=== PATIENT | male | born 1985 | race Caucasian/White ===

== ENCOUNTER 2023-06-15 09:54 | Emergency (ER) | payer OTHER, SELFPAY ==
--- NOTE | ~2023-06-15 | XR_ITS ---
EXAMINATION: XR abdomen/kub 1V INDICATION: Right-sided abdominal pain TECHNIQUE: Supine views of the abdomen were obtained on 2 radiographs. COMPARISON: None FINDINGS: A moderate volume of colonic stool is present. The bowel gas pattern is normal. No definite urolithiasis is identified. IMPRESSION: 1. Moderate volume of colonic stool. Reviewed, dictated and finalized at location A.
[2023-06-15 10:53] VITALS: BP 142/79; PULSE 72; RESP 18; TEMP 36.6; O2SAT 100
--- NOTE | 2023-06-15 11:33 | ED.ABDPAIN ---
HPI - Abdominal Pain General Chief Complaint: Abdominal Pain Stated Complaint: abdominal pain Time Seen by Provider: 06/15/23 11:35 Source: patient and RN notes reviewed Mode of arrival: ambulatory Limitations: no limitations History of Present Illness HPI narrative: 37 year old male presents with concern for abdominal pain. He reports last night around o'clock he began having pain that started in his right flank and radiated around to his right mid abdomen. He reports the pain is a 2/10. He reports it is worse when he is lying down. He denies any other exacerbating or relieving factors. He reports normal bowel movements, he had a bowel movement overnight. He reports he drank apple cider vinegar in cases symptoms are being caused by urinary tract infection which he feel made him vomit. He denies any other nausea or vomiting. He denies diarrhea. He reports feeling like he needs to urinate when he does not. He denies fever, aches, chills, sweats. Denies frequency, hematuria, dysuria. MD elicited complaint: abdominal pain Related Data Home Medications Medication Instructions Recorded Confirmed albuterol sulfate 90 mcg/actuation 2 puff inhalation Q6-8H PRN 06/15/23 06/15/23 aerosol inhaler Wheezing Allergies Allergy/AdvReac Type Severity Reaction Status Date / Time No Known Allergies Allergy Verified 06/15/23 11:27 Review of Systems Review of Systems: CONSTITUTIONAL: Denies malaise, chills, sweats, or fever. ENT: Denies rhinorrhea, congestion, sinus pain, otalgia or sore throat. CARDIOVASCULAR: Denies chest pain, palpitations, or edema. RESPIRATORY: Denies cough or dyspnea. GASTROINTESTINAL: Reports right mid abdominal pain, 1 episode of nausea, vomiting. Denies diarrhea, bloody, or mucous stools. Reports right flank pain GENITOURINARY: Denies dysuria or hematuria. Reports urgency MUSCULOSKELETAL: Denies myalgia. NEUROLOGIC: Denies headache. All systems reviewed & are unremarkable except as noted in HPI and below PMFSH Comments At time of signature, agree with nursing past medical, surgical, social and family history. There is no relevant family history pertinent to the presenting complaint Exam Narrative: GENERAL: Well-appearing, well-nourished, and in no acute distress. HEAD: Normocephalic, atraumatic. EYES: PERRLA, conjunctivae clear, and EOMI. ENT: Nares clear, turbinates pink, no rhinorrhea or epistaxis. Mucous membranes moist. Oropharynx without edema, erythema, or lesions. Tonsils not enlarged and without exudate. NECK: Supple. No lymphadenopathy CHEST: Speaks in full sentences. No respiratory distress. HEART: Regular rate and rhythm. ABDOMEN: Soft, obese, nondistended, nontender. No guarding, rebound tenderness, or rigidity. No pulsatile masses. Bowel sounds present in all four quadrants. No organomegaly. Negative Erickson?s sign. No periumbilical tenderness. No Supra public tenderness or distension. No hernia noted. No scars or surface trauma. SKIN: Warm, dry, no rash. NEURO: Alert and oriented x3. PSYCH: Normal mood and affect Course Course Emergency Course: Discussed x-ray findings with patient. Patient reports at this time his pain is gone. Patient would prefer to follow-up with his primary care doctor red go to the ER at this time. Patient understands reasons to go to the ER if his symptoms return, worsen. Patient is aware of, understands and agrees to treatment plan. Anticipatory guidance given. Patient agrees to follow-up as directed and is aware of reasons to seek care at the emergency department. Portions of this record may have been created with voice recognition software Level of Care: Express Care Visit Vital Signs Vital signs: Vital Signs Temperature 97.9 F 06/15/23 10:53 Pulse Rate 72 06/15/23 10:53 Respiratory Rate 18 06/15/23 10:53 Blood Pressure 142/79 H 06/15/23 10:53 Pulse Oximetry 100 06/15/23 10:53 Oxygen Delivery Room Air 06/15/23 10:53
== END 2023-06-15 12:37 | disposition home or self-care (01) ==
PROVIDERS: Emergency Provider Nurse Practitioner; PCP Family Medicine
DX: R10.9 Unspecified abdominal pain (principal); K59.00 Constipation, unspecified; J45.909 Unspecified asthma, uncomplicated
CPT/HCPCS: 74018; 81003; 99203; G0463

== ENCOUNTER 2024-10-07 14:55 | Emergency (ER) | payer OTHER, SELFPAY ==
[2024-10-07 15:19] VITALS: BP 137/76; PULSE 105; RESP 18; TEMP 37.8; O2SAT 99
--- NOTE | 2024-10-07 16:01 | ED_ITS ---
HPI - URI/Sore Throat General Chief Complaint: Upper Respiratory Infection Stated Complaint: Flu like symptoms Time Seen by Provider: 10/07/24 16:01 Source: patient, RN notes reviewed and old records reviewed Mode of arrival: ambulatory Limitations: no limitations History of Present Illness HPI Narrative: 39-year-old male presents to the [facility] with 2 day history of headaches, body aches, sinus congestion, chest congestion. Patient reports a history of asthma and albuterol is not helping the chest congestion Onset (ago): day(s) (2) Treatments prior to arrival: acetaminophen and other (Albuterol) Related Data Home Medications ?Medication ?Instructions ?Recorded ?Confirmed ?Last Taken ?Type albuterol sulfate 90 mcg/actuation 2 puff inhalation Q6-8H PRN 06/15/23 06/15/23 Unknown History aerosol inhaler Wheezing Allergies Allergy/AdvReac Type Severity Reaction Status Date / Time No Known Allergies Allergy Verified 10/07/24 16:01 Review of Systems Review of Systems: All systems reviewed & are unremarkable except as noted in HPI and below Constitutional: Constitutional: Reports as per HPI ENT: Reports as per HPI Cardiovascular: Cardiovascular: Reports no additional cardiovascular complaints, Denies chest pain and Denies dyspnea Respiratory: Respiratory: Reports as per HPI, Reports chest congestion, Reports cough and Denies dyspnea Musculoskeletal: Musculoskeletal: Reports no additional musculoskeletal complaints Integumentary/Breasts: Skin/Breast: Reports system reviewed and no additional complaints, except as docu PMFSH Comments At the time of my signature, I reviewed and agree with the nursing past medical, surgical, social, and family history. There is no relevant family history pertinent to the patient complaint. Exam Const: General: cooperative, healthy appearing, comfortable, no acute distress, well developed, alert and well nourished Nutritional Appearance: well nourished Orientation/consciousness: patient oriented x3 Limitations: no limitations HENMT: Head: normal to inspection Ears: hearing grossly normal bilaterally, external ears normal, TM's normal bilaterally, EAC's normal, mastoids normal and no periauricular adenopathy Face/Nose/Sinus: normal facial exam and face symmetric Face and sinus: normal facial exam and face symmetric Throat: posterior oropharynx normal, tonsils normal, uvula midline, postnasal drainage, tonsils absent and uvula laterally displaced Eyes: General: appearance normal, both eyes and all related structures Neck: Neck: normal visual inspection, full ROM, no lymphadenopathy and no meningeal signs Chest: Chest palpation & inspection: normal inspection of the chest Resp: Effort & Inspection: normal respiratory effort and able to speak in complete sentences Auscultation: clear to auscultation bilaterally, no crackles, no rales, no rhonchi and no wheezes Cardio: Rate: regular rate Skin: General skin exam: normal color and no rashes or lesions noted Neuro: General: patient oriented x3, gait normal, moves all extremities and no meningeal signs Cognition (Neuro): normal cognition Speech: normal speech Gait exam (Neuro): Normal gait present Extrem: General: normal to inspection, full ROM, capillary refill normal and normal gait Psych: Appearance: grossly normal and well kempt Mental Status: mental status grossly normal Speech and movement: Normal speech and movement present and Clear speech present Affect: normal affect Attitude: cooperative Course Course Level of Care: Express Care Visit Vital Signs Vital signs: Vital Signs Temperature 100.0 F H 10/07/24 15:19 Pulse Rate 105 H 10/07/24 15:19 Respiratory Rate 18 10/07/24 15:19 Blood Pressure 137/76 10/07/24 15:19 Pulse Oximetry 99 10/07/24 15:19 Oxygen Delivery Room Air 10/07/24 15:19 Temperature 100.0 F H 10/07/24 15:19 Pulse Rate 105 H 10/07/24 15:19 Respiratory Rate 18 10/07/24 15:19 Blood Pressure 137/76 10/07/24 15:19 Pulse Oximetry 99 10/07/24 15:19 Oxygen Delivery Room Air 10/07/24 15:19 Reviewed MDM - URI/Sore Throat MDM Narrative Medical decision making narrative: Patient sitting comfortably in exam. Nontoxic, vitals stable. Patient is no acute distress. Patient presents with 2 day history URI symptoms. COVID negative, influenza B positive. Patient appropriate for outpatient treatment with close follow-up. Discharge instructions reviewed with patient, as well as provided in writing per nursing staff. The instructions also include specific and strict return/GO TO THE ER as well as f/u information. All questions have been answered, and the patient deny any further questions with discharge and discharge plan. Some parts of this dictation were generated by voice recognition software and may contain typographical and/or grammatical inaccuracies. Differential Diagnosis Differential diagnosis: Likely upper respiratory infection, otitis media, sinusitis, viral infection and influenza Lab Data Labs: Lab Results 10/07/24 Range/Units 16:16 POC Influenza A Ag Negative (Negative) POC Influenza B Ag Positive (Negative) POC SARS CoV-2 Ag Negative (Negative) Reviewed Critical Care Time Critical Care Time Critical Care Time: No Discharge Plan Discharge Clinical Impression: Influenza B Patient Disposition: Home, Self-Care Condition: Stable Instructions: Antibiotic Form, Influenza (ED) Additional Instructions: Your rapid COVID test were negative Your rapid flu test was negative Your symptoms are likely due to a viral illness, which is not treated with antibiotics. Typically viral infections last 7-10 days, can linger for couple of weeks. It is very important to treat your symptoms. Drink plenty of water, Gatorade, Pedialyte, ice pops or Jell-O. -Alternate Tylenol and Motrin per package directions for fever or pain. You can alternate every 4 hours -Antihistamine medication such as Benadryl at night and Zyrtec/Claritin/Palmira during the day can help improve symptoms. -doing daily nasal irrigations can help relieve pressure your sinuses. Things like a Neti pot -Use Flonase twice a day for 5 days then daily to help reduce the inflammation and dry up your sinuses. -You can also use Mucinex. Be sure to drink plenty of water with this medication at least 8 ounces with every dose and it is important to drink 8 to 10 glasses of water per day. Water is a natural decongestant -Eat and drink things that are easy to swallow, like tea or soup, or popsicles. -Oral rinses such as: Salt water gargles and/or may use topical anesthetic (eg. Chloraseptic spray) or lozenges to relieve dryness or throat pain). -Frequent hand washing or hand java developer with security clearance is one of the best ways to prevent spread of infection. -Using a vaporizer or humidifier at night will also help thin secretions and help with coughing up phlegm. -Follow up with primary care provider in 7-10 days if condition is not improving - For new or worsening symptoms go directly to the nearest ER Patient Language: Croatian Prescriptions: No Action albuterol sulfate 90 mcg/actuation HFA aerosol inhaler 2 puff INHALATION Q6-8H PRN (Reason: Wheezing) Follow-up/Referrals: UNKNOWN,DOCTOR [Primary Care Provider] - Stand Alone Forms: Work/School Release IP Time of Disposition: 16:13
[2024-10-07 16:17] LABS: EDCOVIDSCREEN Negative (Negative); EDINFLUASCREEN Negative (Negative); EDINFLUBSCREEN Positive (Negative)
== END 2024-10-07 16:22 | disposition home or self-care (01) ==
PROVIDERS: Emergency Provider Nurse Practitioner
DX: J10.1 Influenza due to other identified influenza virus with other respiratory manifestations (principal); Z20.822 Contact with and (suspected) exposure to COVID-19
CPT/HCPCS: 87426; 87804; 99212; G0463